=== PATIENT | female | born 1970 | race Caucasian/White ===

== ENCOUNTER → 2021-08-24 | Outpatient (CLI) | payer MEDICAID ==
--- NOTE | 2021-08-24 13:22 | CT ---
EXAMINATION TYPE: CT abdomen pelvis w con DATE OF EXAM: 08/24/2021 COMPARISON: NONE HISTORY: 50 year-old female Z93.2, diverticulosis with ileostomy TECHNIQUE: Contiguous axial scanning of the abdomen and pelvis following administration of 100 ml Iso rasheed 300 IV contrast. Delayed images through the kidneys and coronal/sagittal reconstructions perform ed. CT DLP: 500.3 mGycm Automated exposure control for dose reduction was used. FINDINGS: Heart normal size without pericardial effusion. Lung bases clear without pleural effusion. Liver borderline in size 17.9 cm. There is mild fatty infiltration of the liver. Portal venous system is patent. No biliary ductal dilatation. Possible peripancreatic lymphadenopathy adjacent to the head of the pancreas measuring 1 cm and 9 mm, reference axial image 32 and 35. Follow-up is recommended to reassess. Left-sided retroperitoneal lymph node along the proximal left common iliac artery measures 9 mm. Additional scattered nonenlarged mesenteric and retroperitoneal lymph nodes. Cholecystectomy clips. Adrenal glands, kidneys, spleen with inferior and anterior splenules, pancreas otherwise within ravi l limits. Trace perisplenic ascites noted. No dilated small bowel or free air. There is a diverging right lower quadrant ileostomy. There is sigmoid diverticulosis. Staple line leni ng the mid sigmoid colon from prior resection and reanastomosis. Residual fat stranding within the le ft lower quadrant. Laparotomy incisional scar along the anterior midline. Bladder is urine distended. Uterus anteverted. There is a 4.1 x 2.6 cm oval cystic lesion within the left adnexa likely of ovarian origin. Right ova ry is visualized. Some scattered prominent but nonenlarged pelvic lymph nodes are present measuring u p to 6 mm. Bones: Moderate degenerative disc disease L5-S1 and facet arthropathy lower lumbar spine. IMPRESSION: 1. RIGHT LOWER QUADRANT DIVERTING ILEOSTOMY. STAPLE LINE AT THE MID SIGMOID COLON FROM PRIOR RESECTIO N AND REANASTOMOSIS. THERE IS SIGMOID DIVERTICULOSIS AND SOME RESIDUAL MILD PERICOLONIC INFLAMMATORY FAT STRANDING HERE. 2. TRACE PERISPLENIC FREE FLUID PROBABLY RESIDUAL CHANGES RELATED TO THE PATIENT'S PREVIOUS BOUT OF A CUTE DIVERTICULITIS. 3. A COUPLE PROBABLE PERIPANCREATIC LYMPH NODES ADJACENT TO THE HEAD OF THE PANCREAS MEASURING UP TO 1 CM. THESE WERE REPORTED ON TO MILDLY ENLARGED. THREE-MONTH FOLLOW-UP CT RECOMMENDED TO ENSURE STABI LITY/RESOLUTION. 4. A 4.1 CM OVAL CYSTIC LESION OF THE LEFT OVARY. CORRELATE WITH PATIENT'S MENOPAUSAL STATE. IF THE P ATIENT IS POSTMENOPAUSAL, THIS WOULD BE ABNORMAL AND PELVIC ULTRASOUND CAN BE PERFORMED FOR MORE DETA ILED ASSESSMENT. IF A SIMPLE CYST IS DEMONSTRATED, ANNUAL ULTRASOUND SURVEILLANCE CAN BE PERFORMED.
== END | disposition home or self-care (01) ==
LOC: RADCTMAIN 08:14
PROVIDERS: ATTEND Surgery
DX: K57.30 Diverticulosis of large intestine without perforation or abscess without bleeding (principal); Z93.2 Ileostomy status
CPT/HCPCS: 74177; Q9967

== ENCOUNTER → 2022-08-30 | Outpatient (CLI) | payer MEDICAID ==
--- NOTE | 2022-08-30 18:37 | CT ---
EXAMINATION TYPE: CT abdomen pelvis w con CT DLP: 739 mGycm, Automated exposure control for dose reduction was used. DATE OF EXAM: 08/30/2022 6:08 PM COMPARISON: 08/24/2021 CLINICAL INDICATION:Female, 51 years old with history of R59.0 localized enlarged lymph nodes; Cyst o n pancreas and liver. TECHNIQUE: Axial CT of the abdomen and pelvis. Sagittal and coronal reformats were created on a [employer] workstation. Contrast used:100cc mL of Isovue 300 with IV Contrast, Oral contrast used: with Oral Contrast FINDINGS: LOWER CHEST: Unremarkable ABDOMEN LIVER: No evidence of hepatic cyst on this exam or prior. GALLBLADDER AND BILE DUCTS: Unremarkable. PANCREAS: No evidence of pancreatic cyst on this exam or prior. SPLEEN: Small splenule is present. ADRENAL GLANDS: Unremarkable. KIDNEYS AND URETERS: No evidence of hydronephrosis or renal calculus. The ureters are unremarkable. PELVIS BLADDER: Unremarkable REPRODUCTIVE: Decrease in size of left ovarian cyst now measuring 3.4 x 2.1 cm previously 4.1 x 2.6 c m ABDOMEN & PELVIS STOMACH AND BOWEL: No evidence of bowel obstruction. Postsurgical changes to the colon. Scattered layton veto diverticula present. PERITONEUM: No evidence of pneumoperitoneum or free fluid. VASCULATURE: No evidence of aortic aneurysm. MUSCULOSKELETAL: No acute osseous abnormalities LYMPH NODES: No gross evidence for lymphadenopathy. Prior lymph nodes around the pancreas are felt to correlate with vascular structures. These are better visualized on today's exam due to phase of cont rast. SOFT TISSUE/ABDOMINAL WALL: Unremarkable IMPRESSION: 1. Peripancreatic lymph nodes seen on prior are better visualized on today's exam and correlate with normal vascular structures. 2. Post surgical changes to the bowel without evidence of obstruction. 3. Interval decrease in left ovarian cyst now measuring up to 3.4 cm. 4. Hepatic steatosis. No evidence of cyst on this exam or prior. 5. Scattered clonic diverticulosis. 6. Pancreas is without evidence for abnormality. No evidence of cysts.
== END | disposition home or self-care (01) ==
LOC: RADCTMAIN 16:04
PROVIDERS: ATTEND Family Medicine
DX: N83.202 Unspecified ovarian cyst, left side (principal); K76.0 Fatty (change of) liver, not elsewhere classified; K57.30 Diverticulosis of large intestine without perforation or abscess without bleeding; I10 Essential (primary) hypertension; R59.0 Localized enlarged lymph nodes
CPT/HCPCS: 82565; 84520; 74177; 36415; Q9967 ×2

== ENCOUNTER → 2023-01-03 | Outpatient (CLI) | payer MEDICAID ==
--- NOTE | 2023-01-03 14:53 | US ---
EXAMINATION TYPE: US extremity nonvasc complt RT DATE OF EXAM: 01/03/2023 COMPARISON: NONE CLINICAL INDICATION: Female, 52 years old with history of M71.21 SYNOVIAL CYST RT KNEE; Right knee pa in Scanned right popliteal fossa - appears wnl No concerning solid or cystic mass or abnormal fluid collection. No popliteal cyst. IMPRESSION: As above.
== END | disposition home or self-care (01) ==
LOC: RADUSWWP 14:27
PROVIDERS: ATTEND Family Medicine
DX: M25.561 Pain in right knee (principal); M71.21 Synovial cyst of popliteal space [Baker], right knee